=== PATIENT | male | born 2000 | race American Indian/Alaskan Native ===

== ENCOUNTER 2021-08-11 23:13 | Emergency (ER) | payer SELFPAY ==
[2021-08-11 23:37] VITALS: BP 136/94
--- NOTE | 2021-08-12 01:03 | XRay Report ---
CHEST 2 VIEWS INDICATION / CLINICAL INFORMATION: Chest pain. COMPARISON: None available. FINDINGS: SUPPORT DEVICES: None. HEART / MEDIASTINUM: No significant abnormality. LUNGS / PLEURA: No significant pulmonary or pleural abnormality. No pneumothorax. ADDITIONAL FINDINGS: No skeletal abnormality. IMPRESSION: 1. No acute findings. Signer Name: Linnea Cali MD Signed: 08/12/2021 12:59 AM Workstation Name: [id number]
[2021-08-12] MEDS ORDERED: IPRATROPIUM/ALBUTEROL SULFATE 3 ML AMPUL.NEB IH ONE (01:11)
--- NOTE | 2021-08-12 01:14 | Emergency Department Report ---
ED Chest Pain HPI - General Chief Complaint: Chest Pain Stated Complaint: CHEST/LUNG PAIN Time Seen by Provider: 08/12/21 01:10 Source: patient Mode of arrival: Ambulatory Limitations: No Limitations - History of Present Illness Initial Comments: 20-year-old -Martiniquais female presents to the emergency department with a complaint of a 5-day history of generalized chest discomfort. He describes it as a sharp pain, currently 6 out of 10 in intensity. It has been relatively consistent but the intensity sometimes waxes and wanes. He denies any fever, chest pain, back pain, nausea, vomiting, diaphoresis, lower extremity swelling. The patient has a history of asthma. He is a tobacco smoker but denies any illicit drug use. He has tried ibuprofen 800 mg once per day over the past 2 days without much relief. The patient's HIV-positive brother from an [place] at 28 years of age. No recent travel or sick contacts at home. Severity scale (0 -10): 8 Heart Score - HEART Score History: Slightly suspicious EKG: Normal Age: < 45 Risk factors: 1-2 risk factors Troponin: < normal limit HEART Score: 1 - EKG Read Time Time EKG Completed: 23:29 EKG Read Time: 23:34 - Critical Actions Critical Actions: 0-3 pts:0.9-1.7%risk of adverse cardiac event.Candidate for discharge ED Review of Systems ROS: Stated complaint: CHEST/LUNG PAIN Other details as noted in HPI Comment: All other systems reviewed and negative Constitutional: denies: chills, fever Respiratory: denies: cough, shortness of breath Cardiovascular: chest pain. denies: palpitations, edema Gastrointestinal: denies: abdominal pain, vomiting Musculoskeletal: denies: back pain, arthralgia Skin: denies: rash, lesions Neurological: denies: headache, weakness ED Past Medical Hx - Past Medical History Hx Asthma: Yes - Surgical History Past Surgical History?: No ED Physical Exam - General Limitations: No Limitations - Other Other exam information: GENERAL: The patient is well-developed well-nourished. HENT: Normocephalic. Atraumatic. Patient has moist mucous membranes. EYES: Extraocular motions are intact. Y. NECK: Supple. Trachea is midline. CHEST/LUNGS: Clear to auscultation. There is no respiratory distress noted. There is some reproducible chest wall tenderness to palpation without crepitus or deformity. HEART/CARDIOVASCULAR: Regular. There is no tachycardia. There is no murmur. ABDOMEN: Abdomen is soft, nontender. Patient has normal bowel sounds. SKIN: Skin is warm and dry. NEURO: The patient is awake, alert, and oriented. The patient is cooperative. Normal speech. MUSCULOSKELETAL: There is no tenderness or deformity. There is no limitation range of motion. ED Course Vital Signs 08/11/21 23:35 Temperature 99.4 F Pulse Rate 66 Respiratory 19 Rate Blood Pressure 136/94 [Right] O2 Sat by Pulse 100 Oximetry VENITA score - Venita Score Age > 65: (0) No Aspirin use within the Past 7 Days: (0) No 3 or more CAD Risk Factors: (0) No 2 or more Angina events in past 24 hrs: (1) Yes (If pain is angina) Known CAD with more than 50% Stenosis: (0) No Elevated Cardiac Markers: (0) No ST Deviation Greater than 0.5mm: (0) No VENITA Score: 1 ED Medical Decision Making - EKG Data -: EKG Interpreted by Me EKG shows normal: sinus rhythm (Sinus arrhythmia), axis, intervals, QRS complexes, ST-T waves Rate: normal - EKG Data When compared to previous EKG there are: previous EKG unavailable Interpretation: normal EKG - Radiology Data Radiology results: image reviewed interpreted by me: Chest x-ray does not show any acute process. There are no pleural effusions, obvious pneumonia and there is no pneumothorax. No widened mediastinum. - Medical Decision Making This patient presents with a 5-day history of some midsternal chest discomfort. On examination he has normal heart and lung sounds to auscultation. He does not appear in any respiratory or acute distress. There is some reproducible midsternal chest wall tenderness to palpation without crepitus or deformity. EKG does not show any morphology consistent with ST elevation myocardial infarction or any arrhythmia. Chest x-ray does not show any pneumonia, pleural effusions, pneumothorax, widened mediastinum, or any other acute process. Vital signs reassuring throughout his ED course thus far including being afebrile. The plan was going to be to give the patient a DuoNeb breathing treatment to see if this helps with his discomfort. However, the patient eloped from the emergency department without this treatment, reevaluation, or any discharge paperwork. Critical Care Time: No Critical care attestation.: If time is entered above; I have spent that time in minutes in the direct care of this critically ill patient, excluding procedure time. ED Disposition Clinical Impression: Atypical chest pain Disposition: 07 LEFT AWOL/ELOPED Is pt being admited?: No Instructions: Nonspecific Chest Pain, Adult Time of Disposition: 04:56
--- NOTE | 2021-08-12 11:27 | Electrocardiograph Report ---
[facility] Test Date: 2021-08-11 Test Time: 23:29:10 Pat Name: DALTON RODRIGUEZ Department: Room: Gender: M Unit Aide Tech: : 2000 Requested By: NIURKA BARTON Order Number: [id number] Reading MD: Za Garcia Measurements Intervals [place] Rate: 66 P: 78 MA: 178 QRS: 70 QRSD: 84 T: 61 QT: 382 QTc: 400 Interpretive Statements Sinus arrhythmia No previous ECG available for comparison Electronically Signed On 08-12-2021 11:26:51 EST by Za Garcia
== END 2021-08-12 03:34 | disposition left against medical advice (07) ==
LOC: ED 23:13
DX: R07.89 Other chest pain (principal); J45.909 Unspecified asthma, uncomplicated
CPT/HCPCS: 71046; 93005; 99283

== ENCOUNTER 2022-02-04 15:24 | Emergency (ER) | payer BC ==
--- NOTE | 2022-02-04 17:57 | Emergency Department Report ---
- General Chief complaint: Earache Stated complaint: LEFT EAR PAIN/SWELLING Time Seen by Provider: 02/04/22 17:26 Source: patient Mode of arrival: Ambulatory Limitations: No Limitations - History of Present Illness Initial comments: 21-year-old -Indian male presents to the emergency room for left side ear pain has been going on for over 6 months. Patient states that his keloid on his left earlobe has gradually been getting larger and causing more pain. Patient states he sometimes will take ibuprofen. Patient denies any fever or chills. MD complaint: lesion Onset/Timin -: month(s) Tetanus Up to Date: yes Severity scale (0 -10): 7 Quality: aching Consistency: intermittent Improves with: none Worsens with: palpation, movement Associated symptoms: denies other symptoms Treatments Prior to Arrival: NSAID - Related Data Previous Rx's Medication Instructions Recorded Last Taken Type DOXYCYCLINE Hyclate [Vibramycin 100 mg PO Q12HR 7 Days #14 capsule 02/04/22 Unknown Rx CAP] Ibuprofen [Motrin 800 MG tab] 800 mg PO Q8HR PRN #30 tablet 02/04/22 Unknown Rx Allergies Allergy/AdvReac Type Severity Reaction Status Date / Time No Known Allergies Allergy Verified 02/04/22 17:15 Abscess Boil HPI - HPI Chief Complaint: Earache Stated Complaint: LEFT EAR PAIN/SWELLING Time Seen by Provider: 02/04/22 17:26 Home Medications: Previous Rx's Medication Instructions Recorded Last Taken Type DOXYCYCLINE Hyclate [Vibramycin 100 mg PO Q12HR 7 Days #14 capsule 02/04/22 Unknown Rx CAP] Ibuprofen [Motrin 800 MG tab] 800 mg PO Q8HR PRN #30 tablet 02/04/22 Unknown Rx Allergies/Adverse Reactions: Allergies Allergy/AdvReac Type Severity Reaction Status Date / Time No Known Allergies Allergy Verified 02/04/22 17:15 ED Review of Systems ROS: Stated complaint: LEFT EAR PAIN/SWELLING Other details as noted in HPI Comment: All other systems reviewed and negative ED Past Medical Hx - Past Medical History Hx Asthma: Yes - Medications Home Medications: Home Medications Medication Instructions Recorded Confirmed Last Taken Type DOXYCYCLINE Hyclate [Vibramycin 100 mg PO Q12HR 7 Days #14 capsule 02/04/22 Unknown Rx CAP] Ibuprofen [Motrin 800 MG tab] 800 mg PO Q8HR PRN #30 tablet 02/04/22 Unknown Rx ED Physical Exam - General Limitations: No Limitations General appearance: alert, in no apparent distress - Head Head exam: Present: atraumatic, normocephalic - Eye Eye exam: Present: normal appearance - ENT ENT exam: Present: other (Left earlobe large heavy keloid, postauricular swelling mild redness and tenderness.) - Neck Neck exam: Present: normal inspection, full ROM - Respiratory Respiratory exam: Absent: respiratory distress - Cardiovascular Cardiovascular Exam: Present: regular rate - Extremities Exam Extremities exam: Present: normal inspection, full ROM - Back Exam Back exam: Present: normal inspection - Neurological Exam Neurological exam: Present: alert, oriented X3, normal gait - Psychiatric Psychiatric exam: Present: normal affect, normal mood ED Course Vital Signs 02/04/22 17:15 Temperature 98.5 F Pulse Rate 70 Respiratory 18 Rate Blood Pressure 104/59 O2 Sat by Pulse 100 Oximetry ED Medical Decision Making - Medical Decision Making 21-year-old -Indian male presents to the emergency room for left side ear pain has been going on for over 6 months. Patient states that his keloid on his left earlobe has gradually been getting larger and causing more pain. Patient states he sometimes will take ibuprofen. Patient denies any fever or chills. Patient will be treated for a postauricular abscess. I discussed with patient this keloids need to be followed up by a carpet layer helper/plastic surgeon. Patient be placed on doxycycline ibuprofen for abscess. Critical care attestation.: If time is entered above; I have spent that time in minutes in the direct care of this critically ill patient, excluding procedure time. ED Disposition Clinical Impression: Abscess of postauricular region, Keloid of skin Disposition: HOME / SELF CARE / HOMELESS Is pt being admited?: No Does the pt Need Aspirin: No Condition: Stable Instructions: Skin Abscess, [id number] Additional Instructions: Complete antibiotics as prescribed. Pain medication as needed. Follow-up with plastic surgeon for your keloids. Prescriptions: Ibuprofen [Motrin 800 MG tab] 800 mg PO Q8HR PRN #30 tablet PRN Reason: Pain , Severe (7-10) DOXYCYCLINE Hyclate [Vibramycin CAP] 100 mg PO Q12HR 7 Days #14 capsule Referrals: DARIUS PADRON MD [Staff Physician] - 3-5 Days BLAIR RENEE MD [Staff Physician] - 3-5 Days GARRETT VICENTE MD [Staff Physician] - 3-5 Days Forms: Work/School Release Form(ED) Time of Disposition: 17:58
[2022-02-04 18:08] VITALS: BP 136/84
== END 2022-02-04 18:46 | disposition home or self-care (01) ==
LOC: ED 15:24
DX: H60.02 Abscess of left external ear (principal); L73.0 Acne keloid; J45.909 Unspecified asthma, uncomplicated
CPT/HCPCS: 99282